=== PATIENT | female | born 1990 | race Caucasian/White ===

== ENCOUNTER 2017-10-30 21:33 | Emergency (ER) | payer MEDICAID, OTHER ==
[~2017-10-30] VITALS: Ht 160 cm; Wt 96.2 kg
[2017-10-30 21:56] VITALS: BP 129/75
--- NOTE | 2017-10-30 23:30 | NUR ---
called [facility], presented the case, faxed over facesheet. awaiting call back
--- NOTE | 2017-10-31 00:09 | NUR ---
BAILEY GOSS FOR [facility] [phone]
--- NOTE | 2017-10-31 00:18 | NUR ---
CALLED [facility] FOR S TRANSPORT. ETA 45-60 MIN. RUN NUMBER: [id number]
--- NOTE | 2017-10-31 01:41 | NUR ---
REPORT GIVEN TO DESI EASLEY GOING TO [facility] Kika&Marie
== END 2017-10-31 01:55 | disposition short-term general hospital (02) ==
LOC: ER 21:37
DX: O26.892 Other specified pregnancy related conditions, second trimester (principal); R10.30 Lower abdominal pain, unspecified; Z3A.27 27 weeks gestation of pregnancy
CPT/HCPCS: A4606; J7030; Z7610